=== PATIENT | female | born 1990 | race African-American/Black ===

== ENCOUNTER 2016-04-24 11:40 | Emergency (ER) | payer SELFPAY ==
[~2016-04-24 11:40] MED LIST: Sodium Chloride 0.9% 1,000 ML BAG ONE; Sodium Chloride 0.9% 100 ML BAG ONE
[2016-04-24] MEDS ORDERED: Acetaminophen 500 MG TAB ONE (11:58)
[2016-04-24 12:22] LABS: Bilirubin Negative (Negative); Blood, Urine Large (Negative); Clarity Slightly Cloudy (Clear); Glucose, Urine (Dipstick) Negative (Negative); Leukocyte Large (Negative); Nitrite Negative (Negative); Protein, Urine (Dipstick) Trace mg/dL (Neg-Trace); Specific Gravity, Urine 1.025 (1.005-1.030); Urobilinogen 0.2 mg/dL (0.2-1.0); pH, Urine 5.5 (5.0-9.0)
[2016-04-24 12:26] LABS: Bacteria/HPF 2+ HPF (None Seen); Squamous Epithelial 21-50 HPF (0-3)
[2016-04-24 12:30] LABS: Pregnancy Test - Urine (BHCG) NEGATIVE (NEGATIVE); Pregu Control Background? CLEAR/WHITE (CLR/WHITE); Pregu Control Bar Appear? YES (CONTROL BAR); Specific Gravity 1.025 (1.002-1.036)
[2016-04-24 12:52] LABS: #Lymphocytes 1.3 thou/uL (1.20-3.40); #Monocytes 0.8 thou/uL (0.11-0.59); #Neutrophils 8.2 thou/uL (1.40-6.50); %Basophils 0.4 % (0.0-1.0); %Lymphocytes 12.2 % (21.0-51.0); %Monocytes 7.3 % (0.0-10.0); %Neutrophils 80.1 % (42.0-75.0); Hemoglobin 11.4 g/dL (12.0-16.0); Mean Corpuscular HGB CONC 32.4 g/dL (32.0-36.0); Mean Corpuscular Hemoglobin 27.3 pg (27.0-31.0); Mean Corpuscular Volume 84.4 fl (81.0-99.0); Mean Platelet Volume 6.7 fL (7.4-10.4); Platelet Count 271 thou/uL (130-400); RBC Distribution Width 13.8 % (11.5-14.5); Red Blood Cell (RBC) Count 4.17 mill/uL (4.20-5.40); White Blood Cell (WBC) Count 10.3 thou/uL (4.8-10.8)
[2016-04-24 13:07] LABS: ALT (SGPT) 12 U/L (0-55); AST (SGOT) 15 U/L (5-34); Albumin 3.9 g/dL (3.5-5.0); Alkaline Phosphatase 56 U/L (40-150); Anion Gap 14 mmol/L (10-20); BUN (Urea Nitrogen) 14 mg/dL (7.0-18.7); Bilirubin, Total 0.6 mg/dL (0.2-1.2); Calc. Creatinine Clearance 0 mL/min (70-130); Carbon Dioxide 21 mmol/L (22-29); Chloride 104 mmol/L (98-107); Estimated GFR-MDRD Greater than 90; Globulin 3.5 g/dL (2.4-3.5); Glucose 91 mg/dL (70-105); Potassium 3.8 mmol/L (3.5-5.1); Protein, Total 7.4 g/dL (6.0-8.3); Sodium 135 mmol/L (136-145)
[2016-04-24] MEDS ORDERED: cefTRIAXone\\ROCEPHIN 2 GM VIAL ONE (14:42)
--- NOTE | 2016-04-24 15:45 | PICIS ---
[facility] EMERGENCY RECORD TRIAGE (SunApr 24, 2016 11:51 MDEB) PATIENT: NAME: Emmy Galvan, AGE: 26, GENDER: female, : Leni 1990, TIME OF GREET: SunApr 24, 2016 11:41, PREFERRED LANGUAGE: Colombian, RACE: Black or , ETHNICITY: Not or , ECODE BILLING MAP: [facility], SSN: [id number], Zip Code: [address], KG WEIGHT: 72.57, PHONE: , , , PERSON ID: [id number], PCP: NO PCP. (SunApr 24, 2016 11:51 MDEB) TRIAGE NOTES: R LOWER BACK, PAIN R SIDE ABD PAIN, FEVER X 2 DAYS. (SunApr 24, 2016 11:51 MDEB) COMPLAINT: LOWER BACK & ABDOMINAL PAIN. (SunApr 24, 2016 11:51 MDEB) ADMISSION: URGENCY: 3 Urgent, ADMISSION SOURCE: Home, TRANSPORT: Walk-in, BED: TRIAGE. (SunApr 24, 2016 11:51 MDEB) PAIN: Patient complains of pain described as, aching, on a scale 0-10 patient rates pain as 7. (SunApr 24, 2016 11:51 MDEB) IMMUNIZATIONS: Tetanus immunization up to date. (SunApr 24, 2016 11:51 MDEB) TRIAGE SCREENING: Patient denies suicidal ideation, Patient denies presence of domestic violence. (SunApr 24, 2016 11:51 MDEB) LMP: Last menstrual period: 03/30/2016. (SunApr 24, 2016 11:51 MDEB) PROVIDERS: TRIAGE NURSE: Mari Villanueva RN. (SunApr 24, 2016 11:51 MDEB) VITAL SIGNS: BP 127/77, Pulse 108, Resp 20, Temp 102.1, (Tympanic), Pain 7, O2 Sat 99, on Room Air, Time 04/24/2016 11:48. (11:48 MDEB) PREVIOUS VISIT ALLERGIES: No Known Drug Allergies. (SunApr 24, 2016 11:51 MDEB) KNOWN ALLERGIES No Known Drug Allergies CURRENT MEDICATIONS No recorded medications VITAL SIGNS (11:48 MDEB) VITAL SIGNS: BP: 127/77, Pulse: 108, Resp: 20, Temp: 102.1 (Tympanic), Pain: 7, O2 sat: 99 on Room Air, Time: 04/24/2016 11:48. ORDER DETAILS Order Name: CBC with Differential, Status: Active, Time: 12:24 04/24/2016, User: CORKY, - Ordered for: MD Palma Alberto, - Entered by: MD Palma Alberto - SunApr 24, 2016 12:24, - Quantity: 1, Order Name: Comprehensive Metabolic Panel, Status: Active, Time: 12:25 04/24/2016, User: CORKY, &a-1R&a+25V*p+0X*h2023N*c202B*c15G*c2P*p-0X&a-25V&a+1R Name: Emmy Galvan : 1990 F26 MedRec: [id number] AcctNum: [id number] Prepared: SunApr 24, 2016 15:22 by Interface Page 1 of 7 pMD [facility] EMERGENCY RECORD - Ordered for: MD Palma Alberto, - Entered by: MD Palma Alberto - SunApr 24, 2016 12:25, - Quantity: 1, Order Name: Culture, Urine, Status: Active, Time: 12:26 04/24/2016, User: CORKY, - Ordered for: MD Palma Alberto, - Entered by: MD Palma Alberto - SunApr 24, 2016 12:26, - Quantity: 1, Order Name: Test, Urine (BHCG), Status: Active, Time: 12:06 04/24/2016, User: PINKY, - Ordered for: MD Palma Alberto, - Entered by: CIARRA Villanueva Melanie - [facility] Apr 24, 2016 12:06, - Quantity: 1, Order Name: Urinalysis w/ Rflx Microscopic, Status: Active, Time: 12:06 04/24/2016, User: PINKY, - Ordered for: MD Palma Alberto, - Entered by: CIARRA Villanueva Melanie - [facility] Apr 24, 2016 12:06, - Quantity: 1. MEDICATION ADMINISTRATION SUMMARY Drug Name: cefTRIAXone injection, Dose Ordered: 2 g, Route: IV Push, Status: Given, Time: 14:45 04/24/2016, Drug Name: Normal Saline, Dose Ordered: 1000 mL, Route: IV Fluid Infusion, Status: Given, Time: 12:40 04/24/2016, Drug Name: *Tylenol Extra Strength, Dose Ordered: 2 tab(s), Route: Oral, Status: Given, Time: 12:05 04/24/2016, *Additional information available in notes, Detailed record available in Medication Service section. MEDICATION SERVICE cefTRIAXone injection: Order: cefTRIAXone injection (ceftriaxone sodium) - Dose: 2 g : IV Push Schedule: Now Ordered by: Anthony Palma MD Entered by: Anthony Palma MD SunApr 24, 2016 14:41 Documented as given by: Mari Villanueva RN SunApr 24, 2016 14:45 Patient, Medication, Dose, Route and Time verified prior to administration. Amount given: 2 G, IV SITE #1 IVP, initial medication, Slowly, Catheter placement confirmed via flush prior to administration, IV site without signs or symptoms of infiltration during medication administration, No swelling during administration, No drainage during administration, IV flushed after administration, Correct patient, time, route, dose and medication confirmed prior to administration, Patient advised of actions and side-effects prior to administration, Allergies confirmed and medications reviewed prior to administration, Patient in position of comfort, Side rails up, Cart in lowest position, Family at bedside. Normal Saline: Order: Normal Saline (0.9 % sodium chloride) - &a-1R&a+25V*p+0X*t7361N*c202B*c15G*c2P*p-0X&a-25V&a+1R Name: Cole Emmy Naomy : 1990 F26 MedRec: [id number] AcctNum: [id number] Prepared: SunApr 24, 2016 15:22 by Interface Page 2 of 7 pMD [facility] EMERGENCY RECORD Dose: 1000 mL : IV Fluid Infusion Schedule: Bolus Ordered by: Anthony Palma MD Entered by: Anthony Palma MD SunApr 24, 2016 12:27 , Acknowledged by: Mari Villanueva RN SunApr 24, 2016 12:35 Documented as given by: Mari Villanueva RN SunApr 24, 2016 12:40 Patient, Medication, Dose, Route and Time verified prior to administration. Amount given: 1 L, IV SITE #1 IV fluids established for hydration, IV SITE #1 into right antecubital, IV SITE #1 1st bag hung, IV SITE #1 bolus of 1000 ml established, IV SITE #1 Rate of bolus, 1000 ml/hr, via primary tubing, IV SITE #1 on IV pump, Catheter placement confirmed via flush prior to administration, IV site without signs or symptoms of infiltration during medication administration, No swelling during administration, No drainage during administration, IV flushed after administration, Correct patient, time, route, dose and medication confirmed prior to administration, Patient advised of actions and side-effects prior to administration, Allergies confirmed and medications reviewed prior to administration, Patient in position of comfort, Side rails up, Cart in lowest position, Family at bedside. Tylenol Extra Strength: Order: Tylenol Extra Strength (acetaminophen) - Dose: 2 tab(s) : Oral Schedule: Now Notes: ADMINISTERED VIA NURSING PROTOCOL FOR FEVER. Ordered by: Anthony Palma MD Entered by: Mari Villanueva RN SunApr 24, 2016 12:04 Documented as given by: Mari Villanueva RN SunApr 24, 2016 12:05 Patient, Medication, Dose, Route and Time verified prior to administration. Amount given: 2 TABS, Site: Medication administered P.O., Correct patient, time, route, dose and medication confirmed prior to administration, Patient advised of actions and side-effects prior to administration, Allergies confirmed and medications reviewed prior to administration, Patient in position of comfort, Side rails up, Cart in lowest position, Family at bedside. HPI ABDOMINAL PAIN (12:14 ALMO) CHIEF COMPLAINTS: Patient presents for evaluation of abdominal pain. LOCATION FEMALE: Symptoms are localized, most severe in the lower abdomen, Radiation, to the back. QUALITY: Described as similar to previous episodes. SEVERITY: Maximum severity of symptoms mild, Currently symptoms are moderate. TIME COURSE: Gradual onset of symptoms. ASSOCIATED WITH FEMALE: Associated with recent antibiotic use, Associated with chills, No associated diarrhea, Associated with fever, Associated with flank pain, No associated hematemesis, No associated hematuria, No associated loss of appetite, No associated nausea, &a-1R&a+25V*p+0X*k6578P*c202B*c15G*c2P*p-0X&a-25V&a+1R Name: Emmy Galvan : 1990 F26 MedRec: [id number] AcctNum: [id number] Prepared: SunApr 24, 2016 15:22 by Interface Page 3 of 7 pMD [facility] EMERGENCY RECORD Associated with urinary tract infection signs or symptoms, dysuria, frequency, No associated vomiting, Associated with vaginal discharge, No associated vaginal bleeding. MODIFYING FACTORS FEMALE: status unknown, Patient denies , : 2, Para: 1, AB: 1, elective, Trichomonas. RELIEVED BY: Patient's condition relieved by nothing. EXACERBATED BY: Patient's condition exacerbated by nothing. RISK FACTORS FEMALE: No ectopic risk factors present. ROS (12:19 ALMO) CONSTITUTIONAL: Historian reports chills, reports fever. GI: Historian reports abdominal pain, reports anorexia, denies diarrhea, denies nausea, denies vomiting. GENITOURINARY FEMALE: Historian reports dysuria, reports frequency, denies vaginal bleeding, reports vaginal discharge. NEUROLOGIC: Historian denies focal weakness, denies mental status changes. NOTES: All systems reviewed, negative except as described above. PAST MEDICAL HISTORY (SunApr 24, 2016 11:51 MDEB) MEDICAL HISTORY: No past medical history. FEMALE SURGICAL HISTORY: LYMPH NODE REMOVAL MIDCHEST. PSYCHIATRIC HISTORY: No previous psychiatric history. SOCIAL HISTORY: Lives at home, with family, Patient drinks socially, Patient has no smoking history, Patient drinks socially, twice a month, Patient denies drug use. PHYSICAL EXAM (12:21 ALMO) CONSTITUTIONAL: Vital Signs Reviewed, Patient febrile, temperature of 102.1. HEAD: Head exam included findings of head atraumatic, normocephalic. EYES: Pupils equally round and reactive to light, Extraocular muscles intact. ENT: Mouth exam normal, mucous membranes moist. NECK: Trachea midline. RESPIRATORY CHEST: Respiratory exam included findings of no respiratory distress, Breath sounds clear. CARDIOVASCULAR: Cardiovascular exam included findings of heart rate regular rate and rhythm, Heart sounds normal. ABDOMEN FEMALE: Abdominal exam included findings of abdomen tender, to the right lower quadrant, moderate intensity, Bowel sounds normal, Liver with, Splenomegaly present, no distension, no mass, no peritoneal signs. BACK: Back exam included findings of normal inspection, range of &a-1R&a+25V*p+0X*i6471I*c202B*c15G*c2P*p-0X&a-25V&a+1R Name: Emmy Galvan : 1990 F26 MedRec: [id number] AcctNum: [id number] Prepared: SunApr 24, 2016 15:22 by Interface Page 4 of 7 pMD [facility] EMERGENCY RECORD motion normal, Costovertebral angle tenderness, on the right. NEURO: Neuro exam findings include patient oriented to person, place and time, no focal motor deficits. SKIN: Skin exam included findings of skin warm, dry, and normal in color. PSYCHIATRIC: Psychiatric exam included findings of patient oriented to person place and time, Normal affect, Judgment normal, Insight normal. EVENTS TRANSFER: Triage to Emergency Triage. (11:51 MDEB) Emergency Triage to Main ED -03. (11:52 MDEB) Removed from Emergency Main ED -03. (15:17 MDEB) PROBLEM LIST No recorded problems DIAGNOSIS (14:42 ALMO) FINAL: PRIMARY: pyelonephritis. DISPOSITION PATIENT: Disposition Type: Discharge, Disposition: *Discharge Home. (14:42 ALMO) Patient left the department. (15:17 MDEB) INSTRUCTION (14:48 ALMO) DISCHARGE: KIDNEY INFECTION FEMALE ADULT. FOLLOWUP: Follow up with Primary Care Physician in 1-2 days. SPECIAL: Follow-up with a PCP. PRESCRIPTION Augmentin: TABLET : 875 mg-125 mg : ORAL : Quantity: 1 Unit: tab(s) Route: ORAL Schedule: 2 times a day Dispense: 20 Unit: tab(s) May substitute. Refills: No Refills . (14:49 ALMO) NOTES: No Refills. (14:49 ALMO) traMADol: TABLET : 50 mg : ORAL : Quantity: 1 Unit: tab(s) Route: ORAL Schedule: 1 to 2 times a day Dispense: 4 Unit: tab(s) May substitute. Refills: No Refills . (14:51 ALMO) NOTES: as needed for pain No Refills. (14:51 ALMO) RESULTS LABORATORY: Test, Urine (CG) Collection DT: SunApr 24, 2016 12:14, Test - Urine (BHCG) NEGATIVE , Range (NEGATIVE), Method of sensitivity- &a-1R&a+25V*p+0X*q9943F*c202B*c15G*c2P*p-0X&a-25V&a+1R Name: Emmy Galvan : 1990 F26 MedRec: [id number] AcctNum: [id number] Prepared: SunApr 24, 2016 15:22 by Interface Page 5 of 7 pMD [facility] EMERGENCY RECORD Indeterminant: results should be repeated, after 48 hours. Positive: results may be detected as early as 4-5 days before a first missed menses. Elimination of BHCG-, Elimination following first trimester D&C: 29-44 Days , Elimination following term : 8-24 Days , Specific [place] 1.025 , Range (1.002-1.036), A dilute urine specimen may, not contain compliance representative levels of hCG. If is still, suspected, a first morning urine specimen OR a random blood specimen should, be obtained from the patient 48-72 hours later and re-tested. , . (12:35 MD) Urine Microscopic Collection DT: SunApr 24, 2016 12:14, *RBC/HPF 11-20 - H HPF, Range (0-3), *WBC/HPF Greater Than 50-TNTC HPF, * - H , Range (0-3), *Squamous Epithelial 21-50 - H HPF, Range (0-3), *Bacteria/HPF 2+ - H HPF, Range (None Seen). (12:35 MDEB) Urinalysis w/ Rflx Microscopic Collection DT: SunApr 24, 2016 12:14, Color Yellow , Range (Yellow), Clarity Slightly Cloudy , Range (Clear), Specific [place], Urine 1.025 , Range (1.005-1.030), pH, Urine 5.5 , Range (5.0-9.0), *Leukocyte Large - H , Range (Negative), Nitrite Negative , Range (Negative), Protein, Urine (Dipstick) Trace mg/dL, Range (Neg-Trace), Glucose, Urine (Dipstick) Negative mg/dL, Range (Negative), Ketone, Urine Negative mg/dL, Range (Negative), Urobilinogen 0.2 mg/dL, Range (0.2-1.0), Bilirubin Negative , Range (Negative), *Blood, Urine Large - H , Range (Negative). (12:35 MD) Comprehensive Metabolic Panel Collection DT: SunApr 24, 2016 12:46, *Sodium 135 - L mmol/L, Range (136-145), Potassium 3.8 mmol/L, Range (3.5-5.1), Chloride 104 mmol/L, Range (98-107), *Carbon Dioxide 21 - L mmol/L, Range (22-29), Anion Gap 14 mmol/L, Range (10-20), BUN (Urea Nitrogen) 14 mg/dL, Range (7.0-18.7), Creatinine 0.85 mg/dL, Range (0.6-1.1), Estimated GFR-MDRD Greater than 90 , Reference Range for Estimated GFR: Greater than 90, mL/min/1.73 m2 &a-1R&a+25V*p+0X*j6357W*c202B*c15G*c2P*p-0X&a-25V&a+1R Name: Emmy Galvan : 1990 F26 MedRec: [id number] AcctNum: [id number] Prepared: SunApr 24, 2016 15:22 by Interface Page 6 of 7 pMD [facility] EMERGENCY RECORD NOTE: The MDRD equation has not been validated for use, with the elderly (over 70 years of age), women, patients with, serious comorbid condition or persons with extremes of body size, muscle, mass, or nutritional status. , Glucose 91 mg/dL, Range (70-105), Calcium 9.0 mg/dL, Range (7.8-10.44), Bilirubin, Total 0.6 mg/dL, Range (0.2-1.2), Protein, Total 7.4 g/dL, Range (6.0-8.3), NOTE: Plasma values are generally 0.3 to 0.5 g/dL higher than serum values, due to the presence of fibrinogen. , Albumin 3.9 g/dL, Range (3.5-5.0), Globulin 3.5 g/dL, Range (2.4-3.5), *Alb/Glob Ratio 1.1 - L g/dL, Range (1.2-2.2), Alkaline Phosphatase 56 U/L, Range (40-150), AST (SGOT) 15 U/L, Range (5-34), ALT (SGPT) 12 U/L, Range (0-55). (13:47 PINKY) CBC with Differential Collection DT: SunApr 24, 2016 12:46, White Blood Cell (WBC) Count 10.3 thou/uL, Range (4.8-10.8), *Red Blood Cell (RBC) Count 4.17 - L mill/uL, Range (4.20-5.40), *Hemoglobin 11.4 - L g/dL, Range (12.0-16.0), *Hematocrit 35.2 - L %, Range (36.0-47.0), Mean Corpuscular Volume 84.4 fl, Range (81.0-99.0), Mean Corpuscular Hemoglobin 27.3 pg, Range (27.0-31.0), Mean Corpuscular HGB CONC 32.4 g/dL, Range (32.0-36.0), RBC Distribution Width 13.8 %, Range (11.5-14.5), Platelet Count 271 thou/uL, Range (130-400), *Mean Platelet Volume 6.7 - L fL, Range (7.4-10.4), *%Neutrophils 80.1 - H %, Range (42.0-75.0), *%Lymphocytes 12.2 - L %, Range (21.0-51.0), %Monocytes 7.3 %, Range (0.0-10.0), %Eosinophils 0.0 %, Range (0.0-10.0), %Basophils 0.4 %, Range (0.0-1.0), *#Neutrophils 8.2 - H thou/uL, Range (1.40-6.50), #Lymphocytes 1.3 thou/uL, Range (1.20-3.40), *#Monocytes 0.8 - H thou/uL, Range (0.11-0.59), #Eosinphils 0.0 thou/uL, Range (0.0-0.7), #Basophils 0.0 thou/uL, Range (0.0-0.2). (13:47 MDEB) Niño: CORKY=MD Louie, Anthony SYKESEB=CIARRA Villanueva, Mari &a-1R&a+25V*p+0X*v0963F*c202B*c15G*c2P*p-0X&a-25V&a+1R Name: Emmy Galvan : 1990 F26 MedRec: [id number] AcctNum: [id number] Prepared: SunApr 24, 2016 15:22 by Interface Page 7 of 7 pMD MTDD
== END 2016-04-24 15:17 | disposition home or self-care (01) ==
LOC: MADERS 11:40
DX: N12 Tubulo-interstitial nephritis, not specified as acute or chronic (principal)
CPT/HCPCS: 80053; 81003; 81015; 81025; 85025; 87077; 87086; 87186; 96361; 96374; J0696; J7050

== ENCOUNTER 2018-05-08 09:12 | Emergency (ER) | payer SELFPAY | END 2018-05-08 09:48 | disposition home or self-care (01) | LOC: MADERS 09:12 | DX: M79.672 Pain in left foot (principal) | CPT/HCPCS: 99281 ==

== ENCOUNTER 2019-04-30 17:17 | Emergency (ER) | payer SELFPAY | END 2019-04-30 18:00 | disposition home or self-care (01) | LOC: MADERS 17:17 | DX: R50.9 Fever, unspecified (principal); M79.10 Myalgia, unspecified site | CPT/HCPCS: 99283 ==

== ENCOUNTER 2019-08-07 22:32 | Emergency (ER) | payer SELFPAY ==
[2019-08-07] MEDS ORDERED: Dexamethasone 4 MG TAB ONE (22:57)
[2019-08-07] MEDS ORDERED: Promethazine HCl 6.25 MG/5 ML Syrup ONE (22:57)
[2019-08-07] MEDS ORDERED: HYDROcodone/Acetaminophen 5/325 mg Tablet ONE (22:57)
== END 2019-08-07 23:10 | disposition home or self-care (01) ==
LOC: MADERS 22:32
DX: J20.8 Acute bronchitis due to other specified organisms (principal)
CPT/HCPCS: 99283; J8540

== ENCOUNTER 2019-10-06 12:18 | Emergency (ER) | payer BC, OTHER | END 2019-10-06 13:35 | disposition home or self-care (01) | LOC: MADERS 12:18 | DX: U07.1 COVID-19 (principal) | CPT/HCPCS: 99283 ==

== ENCOUNTER 2020-07-29 14:50 | Emergency (ER) | payer BC, SELFPAY ==
[2020-07-29 15:22] LABS: Bilirubin Negative (Negative); Blood, Urine Trace (Negative); Glucose, Urine (Dipstick) Negative (Negative); Ketone, Urine Negative (Negative); Leukocyte Trace (Negative); Nitrite Positive (Negative); Protein, Urine (Dipstick) Negative (Neg-Trace); Urobilinogen 0.2 mg/dL (Less than 2)
[2020-07-29 15:25] LABS: Clarity Hazy (Clear); Specific Gravity, Urine 1.031 (1.002-1.036)
[2020-07-29 15:26] LABS: Bacteria/HPF 2+ HPF (None Seen); Other Microscopic Description C&S SET UP; RBC/HPF 0-3 HPF (0-3); WBC/HPF 0-3 HPF (0-3)
[2020-07-29 15:27] LABS: Pregnancy Test - Urine (BHCG) Negative (Negative); Pregu Control Background? CLEAR/WHITE (CLR/WHITE); Pregu Control Bar Appear? YES (CONTROL BAR); Specific Gravity 1.031 (1.002-1.036)
[2020-07-29] MEDS ORDERED: Ertapenem 1 GM VIAL ONE (15:43)
[2020-07-29] MEDS ORDERED: Sodium Chloride 0.9% 100 ML ONE (15:44)
[2020-07-29 16:09] LABS: #Basophils 0.1 thou/uL (0.0-0.2); #Eosinphils 0.1 thou/uL (0.0-0.7); #Lymphocytes 3.8 thou/uL (1.20-3.40); #Monocytes 0.5 thou/uL (0.11-0.59); #Neutrophils 4.1 thou/uL (1.40-6.50); %Basophils 0.8 % (0.0-1.0); %Eosinophils 0.8 % (0.0-10.0); %Lymphocytes 44.6 % (21.0-51.0); %Monocytes 6.2 % (0.0-10.0); %Neutrophils 47.7 % (42.0-75.0); Hemoglobin 12.2 g/dL (12.0-16.0); Mean Corpuscular HGB CONC 30.4 g/dL (32.0-36.0); Mean Corpuscular Hemoglobin 27.6 pg (27.0-31.0); Mean Corpuscular Volume 90.9 fL (78.0-98.0); Mean Platelet Volume 7.7 fL (7.4-10.4); Platelet Count 325 thou/uL (130-400); RBC Distribution Width 13.4 % (11.5-14.5); Red Blood Cell (RBC) Count 4.41 mill/uL (4.20-5.40); White Blood Cell (WBC) Count 8.5 thou/uL (4.8-10.8)
[2020-07-29 16:21] LABS: Anion Gap 14 mmol/L (10-20); BUN (Urea Nitrogen) 15 mg/dL (7.0-18.7); Calc. Creatinine Clearance 0 mL/min (70-130); Calcium 9.3 mg/dL (7.8-10.44); Carbon Dioxide 25 mmol/L (22-29); Chloride 106 mmol/L (98-107); Glucose 95 mg/dL (70-105); Potassium 3.9 mmol/L (3.5-5.1); Sodium 141 mmol/L (136-145)
== END 2020-07-29 16:36 | disposition home or self-care (01) ==
LOC: MADERS 14:50
DX: N39.0 Urinary tract infection, site not specified (principal); Z79.899 Other long term (current) drug therapy; Z86.16 Personal history of COVID-19
CPT/HCPCS: 36415; 80048; 81003; 81015; 81025; 83605; 85025; 87077; 87086; 87186; 96365; J1335; J3490

== ENCOUNTER 2020-08-31 15:32 | Emergency (ER) | payer SELFPAY ==
[2020-08-31] MEDS ORDERED: Acetaminophen 500 MG TAB ONE (16:28)
== END 2020-08-31 16:48 | disposition home or self-care (01) ==
LOC: MADERS 15:32
DX: J02.9 Acute pharyngitis, unspecified (principal); I11.0 Hypertensive heart disease with heart failure; Z86.16 Personal history of COVID-19; I50.9 Heart failure, unspecified; Z79.899 Other long term (current) drug therapy
CPT/HCPCS: 87081; 87430; 99283

== ENCOUNTER 2021-12-29 10:09 | Emergency (ER) | payer BC ==
[2021-12-29 10:53] LABS: Bilirubin Negative (Negative); Blood, Urine Trace (Negative); Clarity Clear (Clear); Glucose, Urine (Dipstick) Negative (Negative); Ketone, Urine Negative (Negative); Leukocyte Trace (Negative); Nitrite Negative (Negative); Protein, Urine (Dipstick) Negative (Neg-Trace); Urobilinogen 0.2 mg/dL (Less than 2)
[2021-12-29] MEDS ORDERED: Ibuprofen 600 MG TAB ONE (10:54)
[2021-12-29 10:56] LABS: Bacteria/HPF 1+ HPF (None Seen); RBC/HPF 0-3 HPF (0-3)
[2021-12-29 10:58] LABS: Pregnancy Test - Urine (BHCG) Negative (Negative); Pregu Control Background? CLEAR/WHITE (CLR/WHITE); Pregu Control Bar Appear? YES (CONTROL BAR)
[2021-12-29] MEDS ORDERED: Lidocaine 5% Patch TD SCH (11:00)
[2021-12-29] MEDS ORDERED: Dexamethasone 4 MG TAB ONE (11:14)
== END 2021-12-29 11:30 | disposition home or self-care (01) ==
LOC: MADERS 10:09
DX: M54.50 Low back pain, unspecified (principal); I50.9 Heart failure, unspecified; I11.0 Hypertensive heart disease with heart failure; Z79.899 Other long term (current) drug therapy
CPT/HCPCS: 81003; 81015; 81025; 87077; 87086; 87186; 99283; J8540

== ENCOUNTER 2022-04-16 19:39 | Emergency (ER) | payer BC ==
[2022-04-16 21:13] LABS: #Basophils 0.1 thou/uL (0.0-0.2); #Eosinphils 0.1 thou/uL (0.0-0.7); #Lymphocytes 4.1 thou/uL (1.20-3.40); #Monocytes 0.6 thou/uL (0.11-0.59); #Neutrophils 3.8 thou/uL (1.40-6.50); %Basophils 1.2 % (0.0-1.0); %Eosinophils 1.3 % (0.0-10.0); %Lymphocytes 47.3 % (21.0-51.0); %Monocytes 6.4 % (0.0-10.0); %Neutrophils 43.8 % (42.0-75.0); Hemoglobin 12.9 g/dL (12.0-16.0); Mean Corpuscular HGB CONC 31.5 g/dL (32.0-36.0); Mean Corpuscular Hemoglobin 27.9 pg (27.0-31.0); Mean Corpuscular Volume 88.6 fl (78.0-98.0); Mean Platelet Volume 7.5 fL (7.4-10.4); Platelet Count 302 10x3/uL (130-400); RBC Distribution Width 13.7 % (11.5-14.5); Red Blood Cell (RBC) Count 4.63 mill/uL (4.20-5.40); White Blood Cell (WBC) Count 8.6 10x3/uL (4.8-10.8)
[2022-04-16 21:30] LABS: ALT (SGPT) 32 U/L (8-55); AST (SGOT) 21 U/L (5-34); Albumin 4.1 g/dL (3.5-5.0); Alkaline Phosphatase 58 U/L (40-110); Anion Gap 15 mmol/L (10-20); BUN (Urea Nitrogen) 15 mg/dL (7.0-18.7); Bilirubin, Total 0.3 mg/dL (0.2-1.2); Calc. Creatinine Clearance 0 mL/min (70-130); Calcium 9.4 mg/dL (7.8-10.44); Carbon Dioxide 19 mmol/L (22-29); Chloride 110 mmol/L (98-107); Estimated GFR 75; Globulin 3.7 g/dL (2.4-3.5); Glucose 90 mg/dL (70-105); Protein, Total 7.8 g/dL (6.0-8.3); Sodium 140 mmol/L (136-145)
[2022-04-16 22:08] LABS: Pregnancy Test - Urine (BHCG) Negative (Negative); Pregu Control Background? CLEAR/WHITE (CLR/WHITE); Pregu Control Bar Appear? YES (CONTROL BAR); Specific Gravity 1.025 (1.002-1.036)
[2022-04-16 22:09] LABS: Bilirubin Negative (Negative); Blood, Urine Trace (Negative); Clarity Slightly Cloudy (Clear); Glucose, Urine (Dipstick) Negative (Negative); Ketone, Urine Negative (Negative); Leukocyte Negative (Negative); Nitrite Negative (Negative); Protein, Urine (Dipstick) Negative (Neg-Trace)
[2022-04-16 22:10] LABS: Specific Gravity, Urine 1.025 (1.002-1.036)
[2022-04-16] MEDS ORDERED: Prochlorperazine 10 MG/2 ML VIAL ONE (22:11)
[2022-04-16] MEDS ORDERED: Ketorolac Tromethamine 30 MG/ML VIAL ONE (22:11)
[2022-04-16] MEDS ORDERED: Acetaminophen 500 MG TAB ONE (22:11)
[2022-04-16] MEDS ORDERED: diphenhydrAMINE 50 MG/ML VIAL ONE (22:11)
[2022-04-16 22:22] LABS: Bacteria/HPF 3+ HPF (None Seen)
== END 2022-04-16 23:22 | disposition home or self-care (01) ==
LOC: MADERS 19:39
DX: I11.0 Hypertensive heart disease with heart failure (principal); I50.9 Heart failure, unspecified; R51.9 Headache, unspecified; R82.71 Bacteriuria; Z20.822 Contact with and (suspected) exposure to COVID-19
CPT/HCPCS: 80053; 81003; 81015; 81025; 85025; 87804; 93005; 96374; 96375; J0780; J1200; J1885; U0003; U0005

== ENCOUNTER 2023-04-16 13:50 | Emergency (ER) | payer BC ==
[2023-04-16] MEDS ORDERED: Aspirin Chewable 81 MG TAB ONE (14:45)
[2023-04-16] MEDS ORDERED: Albuterol 200 PUFF (6.7GM INHALER) ONE (14:45)
[2023-04-16] MEDS ORDERED: Dexamethasone 10 MG/ML VIAL ONE (14:45)
== END 2023-04-16 15:25 | disposition home or self-care (01) ==
LOC: MADERS 13:50
DX: J06.9 Acute upper respiratory infection, unspecified (principal); I10 Essential (primary) hypertension
CPT/HCPCS: 36415; 71046; 84484; 87635; 87804; 93005; J1100